=== PATIENT | female | born 1995 | race Caucasian/White ===

== ENCOUNTER 2017-09-17 13:06 | Inpatient (IN) | payer OTHER ==
--- NOTE | 2017-09-17 13:10 | EDPHY ---
H & P - Medical/Surgical History Hx Asthma: No Hx Chronic Respiratory Disease: No Hx Diabetes: No Hx Cardiac Disease: No Hx Renal Disease: No Hx Cirrhosis: No Hx Alcoholism: No Hx HIV/AIDS: No Hx Splenectomy or Spleen Trauma: No Other PMH: pyelonephritis-2013 - Social History Smoking Status: Never smoked Time Seen by Provider: 09/17/17 13:09 Constitutional: Initial Vital Signs Temperature (C) 36.6 C 09/17/17 13:05 Heart Rate 110 H 09/17/17 13:05 Respiratory Rate 16 09/17/17 13:05 Blood Pressure 123/82 H 09/17/17 13:05 O2 Sat (%) 95 09/17/17 13:05 O2 Delivery Mode Room Air Allergies/Adverse Reactions: No Known Allergies Allergy (Unverified 10/01/16 04:20) Home Medications: Medication Instructions Recorded NK [No Known Home Meds] 09/17/17 Medical Decision Making ED Course/Re-evaluation: CHIEF COMPLAINT: Psychiatric evaluation HISTORY OF PRESENT ILLNESS: 22-year-old female brought by police for strange behavior. She has some history of substance abuse. She was doing outpatient hallucinogenic substance abuse treatment via her mom's house and [place] over the last 6 days and was sent to the [facility] inpatient yesterday. She decided to leave there and she was going to present to the police station. She has a lot of strange statements like she is half alien and half human. She thinks that she is addicted to love but not any other substances. She also believes that some she has several things to confess to the police but after talking to the [facility] officer she actually has nothing taken fast. REVIEW OF SYSTEMS: A 10 point review of systems was performed and is negative with the exception of the elements mentioned in the history of present illness. PHYSICAL EXAM: General Appearance: Alert, well hydrated, appropriate, and non-toxic appearing. Head: Atraumatic without scalp tenderness or obvious injury Eyes: Pupils equal, round, reactive to light and accommodation, EOMI, no trauma , no injection. Ears: Clear bilaterally, no perforation, normal landmarks Nose: Atraumatic, no rhinorrhea, clear. Throat: There is no erythema or exudates, no lesions, normal tonsils, mucus membranes moist. Neck: Supple, 2+ carotid upstroke, nontender, no lymphadenopathy. Respiratory: No retractions, no distress, no wheezes, and no accessory muscle use. Lungs are clear to auscultation bilaterally. Cardiovascular: Regular rate and rhythm, no murmurs, rubs, or gallops. Bilateral carotid, radial, dorsalis pedis, and posterior tibial pulses intact. Good capillary refill all extremities. Gastrointestinal: Abdomen is soft, nontender, non-distended, no masses, no rebound, no guarding, no peritoneal signs. Musculoskeletal: Normal active ROM of all extremities, atraumatic. Neurological: Alert, appropriate, and interactive. The patient has normal DTRs and non-focal cranial nerves, motor, sensory, and cerebellar exam. Skin: No rashes, good turgor, no nodules on palpation. Past medical history: Depression and PTSD but denies bipolar disorder schizophrenia or any other mental health disorder Past surgical history: None Family history: Noncontributory Social history: Lives with her mother and [place]. Stepfather lives in [place]. Patient uses loosened edge ends. Unemployed. Denies tobacco use. DIFFERENTIAL DIAGNOSIS: The differential diagnosis for the patient's depression included but was not limited to functional and major depression, situational depression, medication side effect, drugs, and alcohol abuse. MEDICAL DECISION MAKING: Patient is in no acute distress and is hemodynamically stable. We are awaiting psychiatric team's evaluation. Patient has known history of psychiatric disorders and is here for evaluation. This patient has some strange statements and she may have bipolar disorder with a psychotic overlay a verses appear psychotic disorder like new onset schizophrenia. She seems entirely too happy. Some of her statements to make any sense. She has been put on an M1 hold by [facility]. We will get her evaluated labs are pending. (Guille Ruiz) Other Provider: Care assumed from Sara at 1500 on M1, plan for labs then mental health evaluation. 1756: Labs reviewed, medically cleared for psychiatric evaluation. 1800: plan for inpatient psychiatric admission. 2056: The patient will be transferred to [facility] for inpatient psychiatric hospital bed not available at this facility, in stable condition; accepting physician is Dr. Loaiza. (Mingo Goodson) - Data Points Laboratory Results: Laboratory Results 09/17/17 14:52 09/17/17 14:52 09/17/17 09/17/17 09/17/17 14:52 14:52 14:52 WBC 9.13 10^3/uL 10^3/uL (3.80-9.50) RBC 4.56 10^6/uL 10^6/uL (4.18-5.33) Hgb 14.9 g/dL g/dL (12.6-16.3) Hct 41.2 % % (38.0-47.0) MCV 90.4 fL fL (81.5-99.8) MCH 32.7 pg pg (27.9-34.1) MCHC 36.2 g/dL g/dL (32.4-36.7) RDW 11.4 % L % (11.5-15.2) Plt Count 275 10^3/uL 10^3/uL (150-400) MPV 10.1 fL fL (8.7-11.7) Neut % (Auto) 72.4 % % (39.3-74.2) Lymph % (Auto) 20.9 % % (15.0-45.0) [place] % (Auto) 6.1 % % (4.5-13.0) Eos % (Auto) 0.1 % L % (0.6-7.6) Baso % (Auto) 0.4 % % (0.3-1.7) Nucleat RBC Rel Count 0.0 % % (0.0-0.2) Absolute Neuts (auto) 6.60 10^3/uL H 10^3/uL (1.70-6.50) Absolute Lymphs (auto) 1.91 10^3/uL 10^3/uL (1.00-3.00) Absolute Monos (auto) 0.56 10^3/uL 10^3/uL (0.30-0.80) Absolute Eos (auto) 0.01 10^3/uL L 10^3/uL (0.03-0.40) Absolute Basos (auto) 0.04 10^3/uL 10^3/uL (0.02-0.10) Absolute Nucleated RBC 0.00 10^3/uL 10^3/uL (0-0.01) Immature Gran % 0.1 % % (0.0-1.1) Immature Gran # 0.01 10^3/uL 10^3/uL (0.00-0.10) Sodium 137 mEq/L mEq/L (134-144) Potassium 3.9 mEq/L mEq/L (3.5-5.2) Chloride 100 mEq/L mEq/L (97-110) Carbon Dioxide 24 mEq/l mEq/l (22-31) Anion Gap 13 mEq/L mEq/L (8-16) BUN 9 mg/dL mg/dL (7-23) Creatinine 0.8 mg/dL mg/dL (0.6-1.0) Estimated GFR > 60 Glucose 90 mg/dL mg/dL (70-100) Calcium 9.9 mg/dL mg/dL (8.5-10.4) Beta HCG, Qual NEGATIVE Salicylates < 1.0 mg/dL L mg/dL (2.0-20.0) Urine Opiates Screen Acetaminophen < 10 mcg/mL L mcg/mL (10-30) Urine Barbiturates Ur Phencyclidine Scrn Ur Amphetamine Screen U Benzodiazepines Scrn Urine Cocaine Screen U Marijuana (THC) Screen Ethyl Alcohol < 10 mg/dL mg/dL (0-10) 09/17/17 14:20 WBC RBC Hgb Hct MCV MCH MCHC RDW Plt Count MPV Neut % (Auto) Lymph % (Auto) [place] % (Auto) Eos % (Auto) Baso % (Auto) Nucleat RBC Rel Count Absolute Neuts (auto) Absolute Lymphs (auto) Absolute Monos (auto) Absolute Eos (auto) Absolute Basos (auto) Absolute Nucleated RBC Immature Gran % Immature Gran # Sodium Potassium Chloride Carbon Dioxide Anion Gap BUN Creatinine Estimated GFR Glucose Calcium Beta HCG, Qual Salicylates Urine Opiates Screen NEGATIVE (NEGATIVE) Acetaminophen Urine Barbiturates NEGATIVE (NEGATIVE) Ur Phencyclidine Scrn NEGATIVE (NEGATIVE) Ur Amphetamine Screen NEGATIVE (NEGATIVE) U Benzodiazepines Scrn NEGATIVE (NEGATIVE) Urine Cocaine Screen NEGATIVE (NEGATIVE) U Marijuana (THC) Screen NON-NEGATIVE H (NEGATIVE) Ethyl Alcohol Departure - Departure Disposition: [facility] IP Clinical Impression: Acute psychosis Condition: Fair Referrals: Patient,NotPresent [Unknown] - As per Instructions
[2017-09-17 15:08] LABS: % IMMATURE GRANULYOCYTES 0.1 % (0.0-1.1); ABSOLUTE IMMATURE GRANULOCYTES 0.01 10^3/uL (0.00-0.10); ADD DIFF? NO; ADD MORPH? NO; ADD SCAN? NO; ATYPICAL LYMPHOCYTE FLAG 10 (0-99); FRAGMENT RBC FLAG 0 (0-99); HEMATOCRIT 41.2 % (38.0-47.0); HEMOGLOBIN 14.9 g/dL (12.6-16.3); LEFT SHIFT FLG 0 (0-99); LIPEMIA HEMOLYSIS FLAG 90 (0-99); MEAN CELL HEMOGLOBIN 32.7 pg (27.9-34.1); MEAN CELL HEMOGLOBIN CONCENTR. 36.2 g/dL (32.4-36.7); MEAN CELL VOLUME 90.4 fL (81.5-99.8); MEAN PLATELET VOLUME 10.1 fL (8.7-11.7); PLATELET CLUMPS FLAG 0 (0-99); PLATELET COUNT 275 10^3/uL (150-400); RED BLOOD CELL COUNT 4.56 10^6/uL (4.18-5.33); RED CELL DISTRIBUTION WIDTH 11.4 % (11.5-15.2)
[2017-09-17 15:22] LABS: ANION GAP 13 mEq/L (8-16); CALCIUM 9.9 mg/dL (8.5-10.4); CARBON DIOXIDE 24 mEq/l (22-31); CHLORIDE 100 mEq/L (97-110); CREATININE 0.8 mg/dL (0.6-1.0); ETHANOL SERUM < 10 mg/dL (0-10); GLOMERULAR FILTRATION RATE > 60; GLUCOSE 90 mg/dL (70-100); POTASSIUM 3.9 mEq/L (3.5-5.2); SALICYLATE < 1.0 mg/dL (2.0-20.0); SODIUM 137 mEq/L (134-144)
[2017-09-17] MEDS ORDERED: MAG HYDROX/AL HYDROX/SIMETH 30 ML UDCUP PO PRN (22:06)
[2017-09-17] MEDS ORDERED: LORazepam 0.5 MG TAB PO PRN (22:06)
[2017-09-17] MEDS ORDERED: NICOTINE POLACRILEX 2 MG GUM B PRN (22:06)
[2017-09-17] MEDS ORDERED: OLANZapine DISINTEGR 10 MG TAB PO PRN (22:06)
[2017-09-17] MEDS ORDERED: MAGNESIUM HYDROXIDE 30 ML UDCUP PO PRN (22:06)
[2017-09-17] MEDS ORDERED: ACETAMINOPHEN 325 MG TAB PO PRN (22:06)
[2017-09-18 07:11] LABS: ALANINE AMINOTRANSFERASE 34 IU/L (9-52)
--- NOTE | 2017-09-18 13:32 | PDHOSCONS ---
Hospitalist Consult Hospitalist Consult: REFERRING PHYSICIAN/TEAM: Inpatient Psych We have been asked to provide consultation regarding this 22 yo female who is hospitalized in the inpatient psych floor on a mental hold for strange behavior , w/u and diagnosis is pending. She is a pleasant 22 yo Female who reports a long history of depression, anxiety , and PTSD. She admits to occasional cannabis use. She denies any non psychiatrical PMHx, although she reports that she may have had a seizure in the past. She does not carry the diagnosis of seizure disorder. She denies DM, Hypothyroidism, HTN, or other. denies bipolar disorder schizophrenia or any other mental health disorder she denies CP, SOB, palpitations, leg swelling, dizziness, weakness ROS: A 10 point review of systems was performed and is negative with the exception of the elements mentioned in the history of present illness. PMHx: anxiety, PTSD, depression PShx: denies Soc Hx: +ETOH, + tobacco use, + illicits, student at [employer] FmHx: Grandmother with breast cancer O:VSS, RA Head: Atraumatic without scalp tenderness or obvious injury Eyes: Pupils equal, round, reactive to light and accommodation, EOMI, no trauma , no injection. Ears: Clear bilaterally, no perforation, normal landmarks Nose: Atraumatic, no rhinorrhea, clear. Throat: mucus membranes moist. Neck: nontender, no lymphadenopathy. Respiratory: No retractions, no distress, no wheezes, and no accessory muscle use. Lungs are clear to auscultation bilaterally. Cardiovascular: Regular rate and rhythm, no murmurs, rubs, or gallops. Gastrointestinal: Abdomen is soft, nontender, non-distended, no masses, no rebound, no guarding, no peritoneal signs. Musculoskeletal: Normal active ROM of all extremities, atraumatic. Neurological: Alert, appropriate, and interactive. The patient has normal DTRs and non-focal cranial nerves, motor, sensory, and cerebellar exam. Skin: warm, no rash Labs/studies: reviewed I/P -Psych disorder unspecified. W/U pending -Tobacco abuse disorder Plan: cont with psych w/u consider nicotine replacement, unclear how much she smokes daily or if it is intermittently she does not have any chronic medical non psych issues Thank you for this consultation. We will sign off. Call if questions.
[2017-09-18] MEDS ORDERED: traZODone 50 MG TAB PO PRN (13:36)
[2017-09-18] MEDS ORDERED: hydrOXYzine HCL 25 MG TAB PO PRN (13:36)
--- NOTE | 2017-09-18 15:29 | BAPA ---
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 an M1 hold for safety and suicide precautions. 3. Will not prescribe any medications at the current time as patient does not meet criteria for a major mood disorder other than polysubstance dependence and possibly substance induced mood disorder which seems to be entirely associated with her use of mood altering substances. Would strongly recommend either intensive outpatient treatment for substance use chemical dependency IOP or a residential program that focuses primarily on substance use disorders. The patient would benefit from individual psychotherapy from either a certified addictions counselor or someone with experience treating patients with substance use as well as people who are recovering from trauma and grief. She would do well with DBT or mindfulness based CBT as a way of helping the patient learn self-regulation skills, improve her ability to cope and deal with stressful life events and to make more appropriate decisions so that she can avoid harmful or abusive relationships as well as show better judgment in her decisions around her drug use and engaging in sexual relations and getting into relationships with people who may not have her best interests in mind. The patient recognizes that she has engaged in relationships and sexual encounters that she later regrets because she is not thinking clearly due to intoxication or not making good decisions. So this would be an area that the patient would benefit from learning some specific skills around how to make better decisions and how to be more self-reliant and independent. 4. The patient will engage in milieu therapy, group activities and participate in unit activities. 5. Estimated length of stay is 1-2 days. The career development counselor will reach out to contact the staff at [facility] and the patient's mother and determine whether or not the patient is eligible to return to [facility] and if that is what the family wants, the patient says she is agreeable to doing that. /[id number]/MODL MTDD
[2017-09-18] MEDS: MELATONIN 3 MG TAB PO SCH (21:26)
[2017-09-19 07:09] VITALS: TEMP 98.2
--- NOTE | 2017-09-19 12:36 | SOAPPROG ---
SOAP Progress Note Assessment/Plan: Assessment: 22 yo female with h/o depression, anxiety and polysubstance dependence. She was admitted from [facility] on 09/18/17 d/t leaving their facility d/t emotional distress and making contacting with uniform patrol police officer who interpreted things she said as paranoid and delusional. Patient does not present on 3N as paranoid or delusional, and she denies any thoughts, plan or intent to hurt herself or anyone else. Plan: 09/19/17 12:31 1. Patient is emotionally labile today, tearful at times. She seeks attention from particular staff and admits she "depends on other people" to make her feel "OK" and comfort her when she is upset. MD has encouraged patient to use some of the coping skills, including PMR, deep breathing, Russo Mind, that she learned about in groups the past couple of days. 2. Patient denies she has a substance dependence problem, but is willing and eager to return to [facility] on Thursday. 3. CC to check with [facility] that patient will be allowed to return. Patient says her MOC told her she could go back. 4. No meds are indicated as patient denies any psychotic sxs, denies feeling depressed or anxious, and isn't suicidal. Subjective: Met with patient, reviewed chart and d/w staff. Patient presented earlier today tearful and labile while talking to [place] on unit. Staff report patient was upset about a dream she had last night that her family were "in danger." When MD met with patient, she was bright, cheerful, pleasant. She had been coloring in group therapy, interacting with peers appropriately, in no apparent emotional/physical distress. During our conversation, patient wanted to know if Alvin, the CC on Thursday, had spoken to anyone at [facility]. She said her MOC told her that she could go back to [place] and it "wouldn't be a problem." MD explained that CC will need to verify and arrange for her to return there upon discharge, which will likely happen on Thursday. Patient denied any hallucinations , she understood that the thoughts that scared her last night were part of a dream and not reality. There is no evidence of delusions or paranoia. Patient denies any SI/HI. Objective: Vital Signs Temp Pulse Resp BP Pulse Ox 36.8 C 60 16 132/65 H 98 09/19/17 06:00 09/19/17 06:00 09/19/17 06:00 09/19/17 06:00 09/19/17 06:00 MSE: Affect: Euthymic, tearful at times Mood: "OK" "Good" TP: Linear at times , perseverative and tangential other times TC: Denies any SI/HI, no AH/VH, no evidence of delusions or paranoia, no IOR Insight/Judgment: Poor - Time Spent With Patient Time Spent With Patient: 20" - Pending Discharge Pending Discharge Within 24 Hours: No Pending Discharge Within 48 Hours: No ICD10 Worksheet Patient Problems: Problems Problem Status Onset Acute psychosis Acute Alcohol use disorder, moderate, dependence Acute Cannabis use disorder, severe, dependence Acute Cocaine use disorder, severe, dependence Acute Hallucinogen dependence Acute Moderate benzodiazepine use disorder Acute Substance induced mood disorder Acute Hypoxia Acute Reactive airway disease Acute - ICD10 Problem Qualifiers (1) Substance induced mood disorder (2) Cannabis use disorder, severe, dependence (3) Alcohol use disorder, moderate, dependence (4) Hallucinogen dependence (5) Cocaine use disorder, severe, dependence (6) Moderate benzodiazepine use disorder
[2017-09-19] MEDS: MELATONIN 3 MG TAB PO SCH (21:33)
[2017-09-20 06:53] VITALS: RESP 14
[2017-09-20] MEDS ORDERED: MELATONIN 3 MG TAB PO PRN (11:56)
--- NOTE | 2017-09-20 12:01 | SOAPPROG ---
SOAP Progress Note Assessment/Plan: Assessment: 22 yo female with h/o depression, anxiety and polysubstance dependence. She was admitted from [facility] on 09/18/17 d/t leaving their facility d/t emotional distress and making contacting with police justice who interpreted things she said as paranoid and delusional. Patient does not present on 3N as paranoid or delusional, and she denies any thoughts, plan or intent to hurt herself or anyone else. Plan: 09/19/17 12:31 1. Patient is emotionally labile today, tearful at times. She seeks attention from particular staff and admits she "depends on other people" to make her feel "OK" and comfort her when she is upset. MD has encouraged patient to use some of the coping skills, including PMR, deep breathing, Russo Mind, that she learned about in groups the past couple of days. 2. Patient denies she has a substance dependence problem, but is willing and eager to return to [facility] on Thursday. 3. CC to check with [facility] that patient will be allowed to return. Patient says her MOC told her she could go back. 4. No meds are indicated as patient denies any psychotic sxs, denies feeling depressed or anxious, and isn't suicidal. 09/20/17 11:57 1. Patient more emotionally stable today. No crying or irritability. Patient presents bright and cheerful. 2. Likely d/c to [facility] tomorrow. CC spoke with media account executive who said they would come pick patient up tomorrow. 3. Patient continues to deny feeling depressed or sad, denies any SI/HI, no evidence of estela or psychosis. 4. Patient will sign in voluntary. Subjective: Met with patient, reviewed chart and d/w staff. Patient presents with much brighter affect today, smiling and cheerful. She denies feeling depressed and says she is looking forward to returning to [facility] on Thursday. She denies any hallucinations, and there are no s/s of psychosis or estela. She slept 8 hrs , has no increase in goal directed activity, no delusions, no grandiosity, no pressured speech, no racing thoughts, and no elevated or elated mood. Patient admitted to CC, Nanda, that she would frequently have hallucinations while smoking THC. She says she often went to her outpatient therapy appointments intoxicated. She denies any thoughts, plans or intent to hurt herself or anyone else. Objective: Vital Signs Temp Pulse Resp BP Pulse Ox 36.8 C 85 14 113/79 97 09/20/17 06:00 09/20/17 06:00 09/20/17 06:00 09/20/17 06:00 09/20/17 06:00 MSE: Affect: Bright and cheerful, smiling, laughing with peers Mood: "Great" TP: Linear, goal-directed TC: Denies SI/HI, denies any AH/VH, no evidence of psychosis or estela Insight/Judgment: Poor - Time Spent With Patient Time Spent With Patient: 20" - Pending Discharge Pending Discharge Within 24 Hours: Yes Pending Discharge Within 48 Hours: No Pending Discharge Date: 09/21/17 (Likely to d/c to [facility] on Thursday) Pending Discharge Time: 11:00 ICD10 Worksheet Patient Problems: Problems Problem Status Onset Acute psychosis Acute Alcohol use disorder, moderate, dependence Acute Cannabis use disorder, severe, dependence Acute Cocaine use disorder, severe, dependence Acute Hallucinogen dependence Acute Moderate benzodiazepine use disorder Acute Substance induced mood disorder Acute Hypoxia Acute Reactive airway disease Acute - ICD10 Problem Qualifiers (1) Substance induced mood disorder (2) Cannabis use disorder, severe, dependence (3) Alcohol use disorder, moderate, dependence (4) Hallucinogen dependence (5) Cocaine use disorder, severe, dependence (6) Moderate benzodiazepine use disorder
[2017-09-21 07:01] VITALS: BP 107/62; PULSE 84; O2SAT 98
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
== END 2017-09-21 13:33 | disposition home or self-care (01) | DRG 897 ==
LOC: EDUNIT# → BBEH 21:45
DX: F12.188 Cannabis abuse with other cannabis-induced disorder (principal); F16.14 Hallucinogen abuse with hallucinogen-induced mood disorder; F10.14 Alcohol abuse with alcohol-induced mood disorder; F14.14 Cocaine abuse with cocaine-induced mood disorder; F15.14 Other stimulant abuse with stimulant-induced mood disorder; F43.10 Post-traumatic stress disorder, unspecified; Z80.3 Family history of malignant neoplasm of breast; Z81.1 Family history of alcohol abuse and dependence
CPT/HCPCS: 80305; G0480